=== PATIENT | female | born 1960 | race Caucasian/White ===

== ENCOUNTER 2017-04-23 16:51 | Emergency (ER) | payer OTHER ==
[~2017-04-23] VITALS: Ht 160 cm; Wt 68.0 kg
[2017-04-23 17:25] VITALS: BP_SYST 146
[2017-04-23] MEDS ORDERED: KETOROLAC TROMETHAMINE 60 MG/2 ML VIAL IM ONE (18:00)
[2017-04-23] MEDS ORDERED: DEXAMETHASONE SOD PHOSPHATE 10 MG/ML VIAL IM ONE (18:00)
[2017-04-23 18:51] VITALS: BP_SYST 112
== END 2017-04-23 18:51 | disposition home or self-care (01) ==
LOC: SED 16:51
DX: J32.0 Chronic maxillary sinusitis (principal); R03.0 Elevated blood-pressure reading, without diagnosis of hypertension
CPT/HCPCS: 36415; 86403; 87081; 96372; 99284; J1100; J1885

== ENCOUNTER 2017-10-31 09:55 | Emergency (ER) | payer OTHER ==
[~2017-10-31] VITALS: Ht 160 cm; Wt 65.8 kg
[2017-10-31 09:55] VITALS: BP_SYST 143
[2017-10-31 11:11] VITALS: BP_SYST 138
== END 2017-10-31 11:11 | disposition home or self-care (01) ==
LOC: SED 09:55
DX: S13.4XXA Sprain of ligaments of cervical spine, initial encounter (principal); M77.9 Enthesopathy, unspecified; X58.XXXA Exposure to other specified factors, initial encounter; Y93.89 Activity, other specified; Y92.89 Other specified places as the place of occurrence of the external cause; Y99.8 Other external cause status
CPT/HCPCS: 99284

== ENCOUNTER 2018-01-01 15:09 | Emergency (ER) | payer MEDICAID, OTHER ==
[~2018-01-01] VITALS: Ht 160 cm; Wt 68.0 kg
[2018-01-01 15:24] VITALS: BP_SYST 119
[2018-01-01 15:37] VITALS: BP_SYST 119
== END 2018-01-01 15:57 | disposition home or self-care (01) ==
LOC: SED 15:09
DX: Z00.01 Encounter for general adult medical examination with abnormal findings (principal); R03.0 Elevated blood-pressure reading, without diagnosis of hypertension
CPT/HCPCS: 99281

== ENCOUNTER 2018-03-29 09:14 | Emergency (ER) | payer MEDICAID ==
[~2018-03-29] VITALS: Ht 160 cm; Wt 68.0 kg
[2018-03-29 09:14] VITALS: BP_SYST 141
--- NOTE | 2018-03-29 09:19 | NUR ---
Pt placed to ER waiting room in stable condition.
--- NOTE | 2018-03-29 10:25 | NUR ---
Neal batres in ED - 03/29/18 at 1025 by RANDY Pt placed to bed , report given to KALEE Gomez.
--- NOTE | 2018-03-29 10:25 | NUR ---
Pt placed to ER bed 04, report given to KALEE Gomez.
--- NOTE | 2018-03-29 10:35 | NUR ---
Pt presents to ER s/p mechanical fall. Pt reports hitting L elbow and L great toe, denies head trauma, denies KO, denies chest pain or sob, denies nausea or vomiting. Pt ambulatory, able to move L 1st toe, able to move L arm w/o pain to L elbow. No deformities noted. Pt ambulatory, AOX4, no signs of acute distress, speaking full sentences.
--- NOTE | 2018-03-29 11:15 | NUR ---
Dr. Booker at bedside speaking with pt discussing xray results.
[2018-03-29] MEDS ORDERED: IBUPROFEN 800 MG TABLET PO ONE (11:30)
[2018-03-29 12:00] VITALS: BP_SYST 135
--- NOTE | 2018-03-29 12:00 | NUR ---
Patient given written and verbal discharge instructions and verbalizes understanding. ER MD discussed with patient the results and treatment provided. Patient in stable condition. ID arm band removed. Rx of motrin given. Patient educated on pain management and to follow up with PMD. Pain Scale 2. Opportunity for questions provided and answered.
== END 2018-03-29 12:00 | disposition home or self-care (01) ==
LOC: SED 09:14
DX: S50.02XA Contusion of left elbow, initial encounter (principal); R03.0 Elevated blood-pressure reading, without diagnosis of hypertension; W22.8XXA Striking against or struck by other objects, initial encounter; Y93.89 Activity, other specified; Y92.89 Other specified places as the place of occurrence of the external cause; Y99.8 Other external cause status
CPT/HCPCS: 99284